=== PATIENT | female | born 1975 | race Caucasian/White ===

== ENCOUNTER → 2016-10-10 | Outpatient (CLI) | payer OTHER ==
[~2016-10-10] MED LIST: SPECTAB8 PO
[2016-10-10 17:44] LABS: HEMATOCRIT 42.1 % (37-47); MEAN CELL VOLUME 95.5 fL (80-100); MEAN CORPUSCULAR HEMOGLOBIN 30.4 pg (25-34); MEAN CORPUSCULAR HGB CONC 31.8 g/dl (32-36); MEAN PLATELET VOLUME 10.6 fL (7.4-10.4); PLATELET COUNT 366 K/uL (130-400); RED BLOOD COUNT 4.41 M/uL (4.2-5.4); WHITE BLOOD COUNT 9.35 K/uL (4.8-10.8)
[2016-10-10 17:56] LABS: BLOOD UREA NITROGEN 12 mg/dl (7-18); CARBON DIOXIDE 28 mmol/L (21-32); CHLORIDE 106 mmol/L (98-107); GLUCOSE 92 mg/dl (70-99); SODIUM 141 mmol/L (136-145)
[2016-10-10 18:05] LABS: CALCIUM 9.6 mg/dl (8.5-10.1)
== END | disposition home or self-care (01) ==
LOC: C.LABBFT 12:29
PROVIDERS: ATTEND Internal Medicine Interventional Cardiology
DX: Z01.818 Encounter for other preprocedural examination (principal)

== ENCOUNTER 2016-10-12 09:10 | Day surgery (SDC) | payer OTHER ==
[~2016-10-12] VITALS: Ht 172.7 cm; Wt 114.5 kg
[~2016-10-12 09:10] MED LIST changes: +SODIUM CHLORIDE 0.9% 1000ML IV SCH
[2016-10-12 09:50] VITALS: BP 148/81; PULSE 84; TEMP 36.6; O2SAT 99; Ht 172.7 cm; Wt 114.5 kg
[2016-10-12] MEDS ORDERED: SODIUM BICARB 8.4% INJ 50 MEQ/50 ML SYR IV ONE (09:56)
[2016-10-12] MEDS ORDERED: LIDOCAINE HCL 1% 20 ML VIAL ONE (09:56)
[2016-10-12] MEDS ORDERED: LIDOCAINE/EPINEPHRINE 1% INJ 50 ML VIAL ONE (09:56)
--- NOTE | 2016-10-12 10:41 | Procedure Note ---
Pre-Mod Sedation Assessment General Date of Moderate Sedation: Oct 12, 2016. Vital Signs: Vital Signs Past 12 Hours Date Time Temp Pulse Resp B/P (MAP) Pulse Ox O2 Delivery O2 Flow Rate FiO2 10/12/16 09:50 36.6 84 20 148/81 (103) 99 Room Air Review Cardiovascular: regular rate, rhythm, no edema Abdomen: normal bowel sounds, non tender Lungs: chest non-tender, lungs clear Pre-Sedation Airway Assessment Oral Cavity: Dental Abnormalities Able to Visualize Vocal Cords: No Short Thick Neck: No Hx of Sleep Apnea: No Smoking Status: Never Smoker Mallampati Classification: Class II ASA Classification: Class II Procedure Planning Contraindications-for Mod Sed: None Yes Notes The planned sedation has been discussed with the patient and consent obtained. I have identified the patient, determined the appropriateness of sedation and have assessed the patient immediately prior to the procedure. All medicine(s) and interventions are by my order.
[2016-10-12] MEDS ORDERED: MIDAZOLAM HCL 1 MG/ML 2ML VIAL ONE (11:21)
[2016-10-12] MEDS ORDERED: FENTANYL CITRATE INJ 50 MCG/1 ML 2 ML VIAL ONE (11:24)
--- NOTE | 2016-10-12 11:31 | History & Physical Bridge Note ---
H&P Re-Evaluation Bridge Note: I have examined the patient, reviewed the History & Physical and in the interval since the performance of the History & Physical I have noted the following changes of clinical significance: No changes noted
[2016-10-12 11:32] VITALS: BP 148/81; PULSE 84; TEMP 36.6; O2SAT 99
--- NOTE | 2016-10-12 11:34 | Procedure Note ---
Post-Mod Sedation Assessment General Date of Moderate Sedation Oct 12, 2016. Vital Signs: Vital Signs Past 12 Hours Date Time Temp Pulse Resp B/P (MAP) Pulse Ox O2 Delivery O2 Flow Rate FiO2 10/12/16 09:50 36.6 84 20 148/81 (103) 99 Room Air Review - Discharge Criteria Vital Signs Stable: Yes Alert/Oriented/Conversant: Yes Returned to Baseline Mental St: Yes Nausea Absent/Minimal: Yes Pain/Discomfort/Absent/Minimal: Yes Normal/Baseline Respirations: Yes Active Bleeding?: N/A Pt Received D/C Instructions: Yes Prescriptions Given: None Specific Proced. D/C Criteria Distal Pulses Present (Cardiac: Yes Groin site assessed-Card Cath: N/A Voided Prior To Discharge: N/A Discharged Patients Adult Escort/Transportation: Yes
[2016-10-12] MEDS ORDERED: FENTANYL CITRATE INJ 50 MCG/1 ML 2 ML VIAL IV ONE ×2 (11:41→12:10)
[2016-10-12] MEDS ORDERED: ORM MISCELLANEOUS MED XX ONE (12:39)
[2016-10-12] MEDS ORDERED: LIDOCAINE HCL 1% 20 ML VIAL INFIL ONE (12:39)
[2016-10-12 12:45] VITALS: BP 127/77; PULSE 70; TEMP 37.1; O2SAT 96
--- NOTE | 2016-10-12 12:47 | [facility] Operative Report ---
Operative Report Operative Date Oct 12, 2016. Pre-Operative Diagnosis Chronic venous insufficiency Post-Operative Diagnosis Chronic venous insufficiency Procedure(s) Performed Left GSV RFA Surgeon Roe Estimated Blood Loss < 10 Findings GSV dilated. No superficial or deep venous reflux Fluids 700 Tumescent Drains None Anesthesia Moderate Complication(s) None Disposition Recovery Room / PACU Indications Chronic venous insufficiency Venous ulceration Description of Procedure US guided access Left GSV below the knee. Catheter inserted, 2.5 cm from SFJ. Tumescent injected. US confirmed not in deep system. 3:20, 10 cycles of RFA left GSV. No complications. Patient tolerated well. US confirmed no DVT post procedure. I attest to the content of the Intraoperative Record and any orders documented therein. Any exceptions are noted below.
--- NOTE | 2016-10-12 12:49 | Discharge Instructions ---
Discharge Instructions Date of Service Oct 12, 2016. Visit Reason for Visit: Chronic Venous Insufficiency Discharge Discharge Diagnosis / Problem: Chronic venous insufficiency Discharge Goals Goal(s): Decrease discomfort, Improve function Activity Recommendations Activity Limitations: resume your previous activity Lifting Limitations: gradually increase as tolerated Exercise/Sports Limitations: gradually increase as tolerated (Continue walking today.) Driving or Machine Use: resume 1 day after discharge Anesthesia . Post Anesthesia Instructions: If you have had General Anesthesia or IV Sedation: * Do not drive today. * Resume driving when surgeon permits. * Do not make important decisions or sign legal documents today. * Call surgeon for: 1. Temperature elevations greater than 101 degrees F. 2. Uncontrollable pain. 3. Excessive bleeding. 4. Persistent nausea and vomiting. 5. Medication intolerance (nausea, vomiting or rash). * For nausea and vomiting use only clear liquids such as: tea, soda, bouillon until nausea subsides, then gradually increase diet as tolerated. * If you have any concerns or questions, call your surgeon's office. If physician is unavailable and it is an emergency, call 911 or go to the nearest emergency room. . Instructions / Follow-Up Instructions / Follow-Up CAREY wrap until night before bed, Monday morning, wear your compression stockings and continue to wear indefinitely. Follow up Ultrasound as scheduled. Any severe pain, present to the emergency room concerned about DVT. Diet Recommendations Recommended Home Diet: resume previous diet Procedures Procedures Performed: Left Leg Greater Saphenous Vein Radiofrequency Ablation Pending Studies Studies pending at discharge: yes List of pending studies: venous ultrasound Medical Emergencies . Who to Call and When: Medical Emergencies: If at any time you feel your situation is an emergency, please call 911 immediately. . Non-Emergent Contact Non-Emergency issues call your: Primary Care Provider, Product Introduction Manager Call Non-Emergent contact if: you have a fever, your pain is worsening, your pain is concerning you, wound has increased drainage, wound has increased redness . . "Provider Documentation" section prepared by Nelson Au. .
--- NOTE | 2016-10-12 12:56 | DIAGNOSTIC IMAGING REPORT ---
Study: Intraoperative ultrasound Findings. Intraoperative guidance for vascular access IMPRESSION:, Ultrasound assistance/guidance for intraoperative vascular access Electronically signed by: Douglas Hernandez M.D. 10/12/2016 12:55 PM Dictated Date/Time: 10/12/2016 12:52 PM
[2016-10-12 13:15] VITALS: BP 118/62; PULSE 76; O2SAT 96
[2016-10-12 13:30] VITALS: BP 119/63; PULSE 75; TEMP 37; O2SAT 96
== END 2016-10-12 13:40 | disposition home or self-care (01) ==
LOC: C.ACU 09:10
PROVIDERS: ATTEND Internal Medicine Interventional Cardiology
DX: I87.2 Venous insufficiency (chronic) (peripheral) (principal); L97.929 Non-pressure chronic ulcer of unspecified part of left lower leg with unspecified severity; E66.9 Obesity, unspecified

== ENCOUNTER → 2016-11-21 | Outpatient (CLI) | payer OTHER ==
[~2016-11-21] MED LIST changes: -SODIUM CHLORIDE 0.9% 1000ML IV SCH
[2016-11-21 17:32] LABS: MEAN CELL VOLUME 93.4 fL (80-100); MEAN CORPUSCULAR HEMOGLOBIN 29.8 pg (25-34); MEAN PLATELET VOLUME 10.6 fL (7.4-10.4); PLATELET COUNT 314 K/uL (130-400); RED BLOOD COUNT 4.39 M/uL (4.2-5.4); WHITE BLOOD COUNT 10.16 K/uL (4.8-10.8)
[2016-11-21 17:42] LABS: BLOOD UREA NITROGEN 10 mg/dl (7-18); BUN/CREATININE RATIO 11.5 (10-20); CALCIUM 9.5 mg/dl (8.5-10.1); CARBON DIOXIDE 30 mmol/L (21-32); CHLORIDE 103 mmol/L (98-107); CREATININE 0.86 mg/dl (0.60-1.20); GLUCOSE 137 mg/dl (70-99); POTASSIUM 3.5 mmol/L (3.5-5.1); SODIUM 138 mmol/L (136-145)
[2016-11-21 17:52] LABS: PARTIAL THROMBOPLASTIN RATIO 1.1; PROTHROMBIN TIME (PATIENT) 10.5 SECONDS (9.0-12.0)
== END | disposition home or self-care (01) ==
LOC: C.LABBFT 12:14
PROVIDERS: ATTEND Internal Medicine Interventional Cardiology
DX: Z01.818 Encounter for other preprocedural examination (principal)

== ENCOUNTER 2016-11-30 07:54 | Day surgery (SDC) | payer OTHER ==
[~2016-11-30] VITALS: Ht 172.7 cm; Wt 112.0 kg
[~2016-11-30 07:54] MED LIST changes: +SODIUM CHLORIDE 0.9% 1000ML IV SCH
[2016-11-30 08:11] VITALS: BP 126/67; PULSE 95; TEMP 36.6; O2SAT 97; Ht 172.7 cm; Wt 112.0 kg
--- NOTE | 2016-11-30 08:16 | Procedure Note ---
Pre-Mod Sedation Assessment General Date of Moderate Sedation: Nov 30, 2016. Review Cardiovascular: regular rate, rhythm, no edema Abdomen: normal bowel sounds, non tender Lungs: chest non-tender, lungs clear Airway Class: III Pre-Sedation Airway Assessment Oral Cavity: WNL Able to Visualize Vocal Cords: No Short Thick Neck: No Hx of Sleep Apnea: No Smoking Status: Never Smoker Mallampati Classification: Class III ASA Classification: Class II Procedure Planning Contraindications-for Mod Sed: None Yes Notes The planned sedation has been discussed with the patient and consent obtained. I have identified the patient, determined the appropriateness of sedation and have assessed the patient immediately prior to the procedure. All medicine(s) and interventions are by my order.
[2016-11-30] MEDS ORDERED: FENTANYL CITRATE INJ 50 MCG/1 ML 2 ML VIAL ONE (09:59)
[2016-11-30] MEDS ORDERED: MIDAZOLAM HCL 1 MG/ML 2ML VIAL ONE (09:59)
[2016-11-30] MEDS ORDERED: LIDOCAINE/EPINEPHRINE 1% INJ 50 ML VIAL ONE (10:00)
[2016-11-30] MEDS ORDERED: SODIUM BICARB 8.4% INJ 50 MEQ/50 ML SYR IV ONE (10:00)
[2016-11-30] MEDS ORDERED: LIDOCAINE HCL 1% 20 ML VIAL ONE (10:00)
--- NOTE | 2016-11-30 10:05 | History and Physical ---
History & Physical Date Nov 30, 2016. History of Present Illness Mrs. Duff is a very pleasant 41-year-old woman with obesity, degenerative disk disease, status post multiple prior surgeries and chronic venous insufficiency with slow healing venous ulcerations here today for Right GSV RF ablation. [facility]. At that time she had longstanding ulcerations most notably on her left lower extremity that had been slow to heal. She noted longstanding varicose veins and lower extremity swelling left greater than right. Venous reflux ultrasound showed right and left GSVs to be dilated with reflux. She underwent left GSV ablation on 2016 without complication. Since the procedure she states her left leg feels much improved. The swelling is reduced and wound healing seems to be significantly improved. She continues to endorse persistent RLE discomfort, heaviness and swelling. Past Medical/Surgical History Chronic venous insufficiency degenerative disk disease obesity Additional History Hepatic Disease: No Endocrine Disorder: No Kidney Disease: No Hypertension: No Heart Disease: No Bleeding Tendencies: No Infectious Diseases: No Allergies Coded Allergies: Sulfa Antibiotics (Verified Allergy, Intermediate, HIVES, 11/30/16) Home Medications Scheduled Specialty Vitamins Products (Weight Loss Daily Multi), 2 DROPS PO DAILY Physical Examination Skin: warm/dry Eyes: normal inspection ENT: normal ENT inspection Neck: supple Respiratory/Chest: lungs clear Cardiovascular: regular rate, rhythm, no edema Abdomen / GI: normal bowel sounds Back: normal inspection Extremities: + pertinent finding (mild LE swelling bilaterally. healed prior left ulcerations. ) Neurologic/Psych: no motor/sensory deficits Diagnosis Chronic venous insufficiency ASA Classification: ASA Class II Plan of Treatment Right GSV RF ablation.
[2016-11-30 10:20] VITALS: BP 126/67; PULSE 95; TEMP 36.6; O2SAT 97
[2016-11-30] MEDS ORDERED: LIDOCAINE HCL 1% 20 ML VIAL INJ ONE (10:54)
[2016-11-30] MEDS ORDERED: FENTANYL CITRATE INJ 50 MCG/1 ML 2 ML VIAL IV ONE ×2 (10:55→11:00)
[2016-11-30] MEDS ORDERED: MIDAZOLAM HCL 1 MG/ML 2ML VIAL IV ONE ×2 (10:55→11:00)
[2016-11-30] MEDS ORDERED: ORM MISCELLANEOUS MED XX ONE (11:16)
--- NOTE | 2016-11-30 11:19 | Procedure Note ---
Post-Mod Sedation Assessment General Date of Moderate Sedation Nov 30, 2016. Vital Signs: Vital Signs Past 12 Hours Date Time Temp Pulse Resp B/P (MAP) Pulse Ox O2 Delivery O2 Flow Rate FiO2 11/30/16 08:11 36.6 95 18 126/67 (86) 97 Room Air Review - Discharge Criteria Vital Signs Stable: Yes Alert/Oriented/Conversant: Yes Returned to Baseline Mental St: Yes Nausea Absent/Minimal: Yes Pain/Discomfort/Absent/Minimal: Yes Normal/Baseline Respirations: Yes Active Bleeding?: No Pt Received D/C Instructions: N/A Prescriptions Given: None Specific Proced. D/C Criteria Distal Pulses Present (Cardiac: N/A Groin site assessed-Card Cath: N/A Voided Prior To Discharge: N/A Discharged Patients Adult Escort/Transportation: Yes
--- NOTE | 2016-11-30 11:23 | [facility] Operative Report ---
Operative Report Operative Date Nov 30, 2016. Pre-Operative Diagnosis Chronic venous Insufficiency Post-Operative Diagnosis Chronic venous Insufficiency Procedure(s) Performed Right GSV RF ablation Surgeon Roe Wrapper Caser Surgeon(s) Corina Estimated Blood Loss 4 Findings Dilated Right GSV Specimens None Drains None Anesthesia Moderate Complication(s) None Disposition Recovery Room / PACU Indications CVI Description of Procedure US guided access Right GSV below the knee. Catheter inserted, 2.5cm from SFJ. Tumescent injected. US confirmed not in deep system. 4:00, 12 cycles of RFA right GSV. No complications. Patient tolerated well. US confirmed no DVT post procedure. I attest to the content of the Intraoperative Record and any orders documented therein. Any exceptions are noted below.
[2016-11-30 11:25] VITALS: BP 119/65; PULSE 74; TEMP 36.6; O2SAT 97
--- NOTE | 2016-11-30 11:29 | Discharge Instructions ---
Discharge Instructions Procedure Procedure Date: Nov 30, 2016. Reason for Visit: Chronic Venous Insufficiency. Discharge Discharge Date: Nov 30, 2016. Discharge Diagnosis: Chronic venous insufficiency Last Recorded Wt (Kilograms): 112 Anesthesia Post Anesthesia Instructions: If you have had General Anesthesia or IV Sedation: * Do not drive today. * Resume driving when surgeon permits. * Do not make important decisions or sign legal documents today. * Call surgeon for: 1. Temperature elevations greater than 101 degrees F. 2. Uncontrollable pain. 3. Excessive bleeding. 4. Persistent nausea and vomiting. 5. Medication intolerance (nausea, vomiting or rash). * For nausea and vomiting use only clear liquids such as: tea, soda, bouillon until nausea subsides, then gradually increase diet as tolerated. * If you have any concerns or questions, call your surgeon's office. If physician is unavailable and it is an emergency, call 911 or go to the nearest emergency room. Instructions Activity Recommendations: resume regular activity (Follow instructions provided on office paperwork) Recommended Home Diet: resume previous diet Allergies: Coded Allergies: Sulfa Antibiotics (Verified Allergy, Intermediate, HIVES, 11/30/16) Follow Up Follow-up with: As scheduled Alla Tay Recommendations: Call your doctor if: * Temperature above 101 degrees * Pain not relieved by pain medicine ordered * There is increased drainage or redness from any incision * You have any unanswered questions or concerns. Your Doctors Instructions noted above were prepared by provider Nelson Au. Patient Signature Section: Patient Instructions Signature Page Olga Duff Patient (or Guardian) Signature/Date: I have read and understand the instructions given to me by my caregivers. Caregiver/RN/Doctor Signature/Date: The above-named patient and/or guardian has received patient instructions on this date. + Original Patient Signature Page (only) stays with chart. Please make copy for patient.
[2016-11-30 11:50] VITALS: BP 126/73; PULSE 80; TEMP 36.6; O2SAT 95
== END 2016-11-30 12:00 | disposition home or self-care (01) ==
LOC: C.ACU 07:54
PROVIDERS: ATTEND Internal Medicine Interventional Cardiology
DX: I87.2 Venous insufficiency (chronic) (peripheral) (principal); E66.9 Obesity, unspecified